=== PATIENT | male | born 1970 | race Caucasian/White ===

== ENCOUNTER 2018-03-25 14:15 | Emergency (ER) | payer OTHER ==
[~2018-03-25] VITALS: Ht 170.1 cm; Wt 77.1 kg
--- NOTE | ~2018-03-25 | EKG ---
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
[~2018-03-25 14:15] MED LIST: HYDROCODONE BIT1 T11 PO; VICODIN 500 MG-1 TAB PO
[2018-03-25 14:27] LABS: BASO # 0.1 10*3/uL (0.0-0.1); BASO % 0.6 % (0.0-1.0); EOS # 0.1 10*3/uL (0.0-0.4); EOS % 0.6 % (1.0-4.0); HEMATOCRIT 47.2 % (42.0-52.0); HEMOGLOBIN 16.5 g/dl (14.0-18.0); LYMPH # 3.5 10*3/uL (1.3-4.4); LYMPH % 25.6 % (27.0-41.0); MEAN CELL VOLUME 89.9 fl (80.0-94.0); MEAN CORPUSCULAR HGB 31.4 pg (27.0-31.0); MEAN PLATELET VOLUME 9.1 fl (9.6-12.3); MONO # 0.8 10*3/uL (0.1-1.0); NEUT # 9.2 10*3/uL (2.3-7.9); NEUT % 66.8 % (47.0-73.0); PLATELET COUNT AUTOMATED 314 10*3/uL (130-400); RED BLOOD COUNT 5.25 10*6/uL (4.50-5.90); RED CELL DISTRI WIDTH 12.2 % (0-14.5); WHITE BLOOD COUNT 13.7 10*3/uL (4.8-10.8)
[2018-03-25 14:37] LABS: ACT PARTIAL THROMBO TIME 24.8 SECONDS (20.8-31.5)
[2018-03-25 14:45] LABS: ALBUMIN 4.2 gm/dl (3.1-4.5); ALKALINE PHOSPHATASE 61 U/L (45-117); BUN 16 mg/dl (7-24); CHLORIDE 105 mmol/L (98-107); CREATININE 1.25 mg/dL (0.70-1.30); POTASSIUM 3.7 mmol/L (3.5-5.1); SGOT/AST 17 IU/L (3-35); SGPT/ALT 19 U/L (12-78); SODIUM 138 mmol/L (136-145); TOTAL PROTEIN 7.7 gm/dL (6.4-8.2)
[2018-03-25 14:53] LABS: TROPONIN I < 0.015 ng/ml (<0.045)
[2018-03-25 16:03] VITALS: BP 136/78
== END 2018-03-25 15:56 | disposition left against medical advice (07) ==
LOC: ED 14:15
PROVIDERS: Emergency Medicine
DX: R07.9 Chest pain, unspecified (principal); Z88.0 Allergy status to penicillin; Z88.7 Allergy status to serum and vaccine

== ENCOUNTER 2019-01-13 15:01 | Emergency (ER) | payer SELFPAY ==
[~2019-01-13] VITALS: Ht 170.1 cm; Wt 77.1 kg
[2019-01-13 15:02] VITALS: BP 150/98
[2019-01-13] MEDS ORDERED: CIPRO500 MG PO (15:25)
== END 2019-01-13 16:51 | disposition home or self-care (01) ==
LOC: ED 15:01
DX: S91.332A Puncture wound without foreign body, left foot, initial encounter (principal); Z88.0 Allergy status to penicillin; Z88.7 Allergy status to serum and vaccine; W45.0XXA Nail entering through skin, initial encounter; Y93.89 Activity, other specified; Y92.89 Other specified places as the place of occurrence of the external cause; Y99.8 Other external cause status

== ENCOUNTER 2020-01-14 15:19 | Emergency (ER) | payer SELFPAY ==
[~2020-01-14] VITALS: Ht 162.5 cm; Wt 77.1 kg
[~2020-01-14 15:19] MED LIST changes: +CIPRO500 MG PO
[2020-01-14 15:35] VITALS: BP 130/81
[2020-01-14] MEDS ORDERED: CLINDAMYCIN HC300 MG PO (16:45)
[2020-01-14] MEDS ORDERED: NAPROSYN500 MG PO (16:47)
== END 2020-01-14 16:49 | disposition home or self-care (01) ==
LOC: ED 15:19
DX: L02.01 Cutaneous abscess of face (principal); Z98.890 Other specified postprocedural states; Z88.0 Allergy status to penicillin; Z88.7 Allergy status to serum and vaccine

== ENCOUNTER → 2021-03-18 | Outpatient (CLI) | payer OTHER ==
[~2021-03-18] MED LIST changes: +CLINDAMYCIN HC300 MG PO; +NAPROSYN500 MG PO
== END | disposition home or self-care (01) ==
LOC: RAD 13:06
PROVIDERS: ATTEND Family Medicine
DX: M99.01 Segmental and somatic dysfunction of cervical region (principal); Z72.0 Tobacco use

== ENCOUNTER 2022-02-02 09:15 | Emergency (ER) | payer OTHER ==
[~2022-02-02] VITALS: Ht 170.1 cm; Wt 81.6 kg
[2022-02-02 09:28] VITALS: BP 143/93
== END 2022-02-02 11:45 | disposition left against medical advice (07) ==
LOC: ED 09:15
DX: T78.49XA Other allergy, initial encounter (principal); Z91.030 Bee allergy status; Z88.0 Allergy status to penicillin; Z88.7 Allergy status to serum and vaccine; F17.200 Nicotine dependence, unspecified, uncomplicated; X58.XXXA Exposure to other specified factors, initial encounter

== ENCOUNTER 2022-11-10 11:06 | Emergency (ER) | payer OTHER ==
[~2022-11-10] VITALS: Ht 170.1 cm; Wt 81.6 kg
[2022-11-10 11:45] LABS: BASO # 0.1 10*3/uL (0.0-0.1); EOS # 0.2 10*3/uL (0.0-0.4); EOS % 2.3 % (1.0-4.0); HEMATOCRIT 47.5 % (42.0-52.0); LYMPH # 2.1 10*3/uL (1.3-4.4); LYMPH % 29.4 % (27.0-41.0); MEAN CORPUSCULAR HGB 31.8 pg (27.0-31.0); MEAN CORPUSCULAR HGB CONC 34.9 g/dl (33.0-37.0); MEAN PLATELET VOLUME 8.9 fl (9.6-12.3); MONO # 0.7 10*3/uL (0.1-1.0); MONO % 9.4 % (3.0-9.0); NEUT # 4.2 10*3/uL (2.3-7.9); NEUT % 57.6 % (47.0-73.0); PLATELET COUNT AUTOMATED 313 10*3/uL (130-400); RED BLOOD COUNT 5.22 10*6/uL (4.50-5.90); RED CELL DISTRI WIDTH 12.1 % (0-14.5); WHITE BLOOD COUNT 7.2 10*3/uL (4.8-10.8)
[2022-11-10 11:58] LABS: ALKALINE PHOSPHATASE 66 U/L (46-116); BUN 8 mg/dl (9-23); CHLORIDE 106 mmol/L (98-107); POTASSIUM 4.2 mmol/L (3.4-5.1); SGPT/ALT 19 U/L (10-49); TOTAL PROTEIN 7.1 gm/dL (6.0-8.0)
[2022-11-10 12:23] VITALS: BP 131/74
[2022-11-10] MEDS ORDERED: PREDNISONE50 MG PO (12:44)
[2022-11-10] MEDS ORDERED: VIBRAMYCIN100 MG PO (12:44)
== END 2022-11-10 11:37 | disposition home or self-care (01) ==
LOC: ED 11:06
PROVIDERS: Nurse Practitioner Family
DX: R21 Rash and other nonspecific skin eruption (principal); R59.0 Localized enlarged lymph nodes; F17.200 Nicotine dependence, unspecified, uncomplicated; Z91.030 Bee allergy status; Z88.0 Allergy status to penicillin; Z88.7 Allergy status to serum and vaccine

== ENCOUNTER → 2023-06-25 | Outpatient (CLI) | payer MEDICAID ==
[~2023-06-25] MED LIST changes: +PREDNISONE50 MG PO; +VIBRAMYCIN100 MG PO
== END | disposition home or self-care (01) ==
LOC: RAD 16:44
PROVIDERS: ATTEND Internal Medicine
DX: U07.1 COVID-19 (principal)

== ENCOUNTER 2023-12-02 22:49 | Emergency (ER) | payer MEDICAID ==
[~2023-12-02] VITALS: Ht 170.2 cm; Wt 81.6 kg
[2023-12-02 22:55] VITALS: BP 126/74
[2023-12-02] MEDS ORDERED: Tetracaine Hydrochloride 0.5% 4 ML BOT OPH ONE (23:00)
[2023-12-02] MEDS ORDERED: Dexamethasone/Tobramycin OPHTHALMIC 2.5 ML BOTTLE OPH ONE (23:05)
[2023-12-02] MEDS ORDERED: FLUORESCEIN SODIUM 1 MG STRIP OPH ONE (23:05)
== END 2023-12-02 23:43 | disposition home or self-care (01) ==
LOC: ED 22:49
DX: S05.02XA Injury of conjunctiva and corneal abrasion without foreign body, left eye, initial encounter (principal); F31.9 Bipolar disorder, unspecified; Z91.030 Bee allergy status; Z88.0 Allergy status to penicillin; Z88.7 Allergy status to serum and vaccine; Z98.890 Other specified postprocedural states; X58.XXXA Exposure to other specified factors, initial encounter; Y93.89 Activity, other specified; Y92.009 Unspecified place in unspecified non-institutional (private) residence as the place of occurrence of the external cause; Y99.8 Other external cause status

== ENCOUNTER 2024-01-14 21:19 | Emergency (ER) | payer MEDICAID ==
[~2024-01-14] VITALS: Ht 170.1 cm; Wt 77.1 kg
[2024-01-14 21:31] VITALS: BP 134/84
[2024-01-14] MEDS ORDERED: Ketorolac Tromethamine 60 MG/2 ML VIAL IM ONE (23:10)
[2024-01-15] MEDS ORDERED: NAPROSYN500 MG PO (00:22)
== END 2024-01-15 00:26 | disposition home or self-care (01) ==
LOC: ED 21:19
DX: M79.622 Pain in left upper arm (principal); Z91.030 Bee allergy status; Z88.0 Allergy status to penicillin; Z88.7 Allergy status to serum and vaccine; Z98.890 Other specified postprocedural states

== ENCOUNTER 2024-01-21 14:24 | Inpatient (IN) | payer MEDICAID ==
[~2024-01-21] VITALS: Ht 170.1 cm; Wt 82.6 kg
[2024-01-21 14:29] VITALS: BP 157/79
[2024-01-21 15:21] LABS: BASO # 0.1 10*3/uL (0.0-0.1); BASO % 1.2 % (0.0-1.0); EOS # 0.2 10*3/uL (0.0-0.4); EOS % 2.5 % (1.0-4.0); HEMATOCRIT 34.6 % (42.0-52.0); LYMPH # 2.4 10*3/uL (1.3-4.4); LYMPH % 35.7 % (27.0-41.0); MEAN CELL VOLUME 92.8 fl (80.0-94.0); MEAN CORPUSCULAR HGB 32.2 pg (27.0-31.0); MEAN CORPUSCULAR HGB CONC 34.7 g/dl (33.0-37.0); MEAN PLATELET VOLUME 9.2 fl (9.6-12.3); MONO # 0.6 10*3/uL (0.1-1.0); MONO % 8.5 % (3.0-9.0); NEUT # 3.5 10*3/uL (2.3-7.9); NEUT % 51.8 % (47.0-73.0); PLATELET COUNT AUTOMATED 306 10*3/uL (130-400); RED BLOOD COUNT 3.73 10*6/uL (4.50-5.90); WHITE BLOOD COUNT 6.8 10*3/uL (4.8-10.8)
[2024-01-21 15:32] LABS: ACT PARTIAL THROMBO TIME 26.6 SECONDS (20.0-32.1)
[2024-01-21 15:38] LABS: BILIRUBIN Negative (Negative); BLOOD Negative (Negative); CLARITY Clear (Clear); COLOR Yellow (Yellow); GLUCOSE Negative (Negative); KETONE Negative (Negative); LEUKO ESTERASE Negative (Negative); NITRITE Negative (Negative); PH 5.5 (4.5-8.0)
[2024-01-21] MEDS ORDERED: Pantoprazole Sodium 40 MG VIAL IV ONE (15:40)
[2024-01-21 15:45] LABS: BACTERIA 1+
[2024-01-21 15:49] LABS: ALKALINE PHOSPHATASE 50 U/L (46-116); BUN 13 mg/dl (9-23); CHLORIDE 110 mmol/L (98-107); LIPASE 39 U/L (12-53); POTASSIUM 3.8 mmol/L (3.4-5.1); SGPT/ALT 17 U/L (5-49); TOTAL PROTEIN 6.1 gm/dL (6.0-8.0)
[2024-01-21 15:50] LABS: ETHYL ALCOHOL < 3.0 mg/dl (<3)
[2024-01-21] MEDS ORDERED: IOHEXOL 300 MG/ML 100 ML VIAL IV ONE (16:40)
[2024-01-21] MEDS ORDERED: Nicotine 21 MG PATCH T SCH (18:35)
[2024-01-22] VITALS (7 sets, daily range): BP systolic 118–148; BP diastolic 62–92
[2024-01-22] MEDS ORDERED: SUCRALFATE 1 GM TAB PO SCH (07:30)
[2024-01-22 11:37] LABS: BASO # 0.1 10*3/uL (0.0-0.1); BASO % 0.9 % (0.0-1.0); EOS # 0.2 10*3/uL (0.0-0.4); EOS % 2.5 % (1.0-4.0); HEMATOCRIT 36.7 % (42.0-52.0); LYMPH # 2.9 10*3/uL (1.3-4.4); LYMPH % 37.9 % (27.0-41.0); MEAN CELL VOLUME 93.4 fl (80.0-94.0); MEAN CORPUSCULAR HGB 32.3 pg (27.0-31.0); MEAN CORPUSCULAR HGB CONC 34.6 g/dl (33.0-37.0); MEAN PLATELET VOLUME 9.2 fl (9.6-12.3); MONO # 0.7 10*3/uL (0.1-1.0); NEUT # 3.7 10*3/uL (2.3-7.9); NEUT % 49.3 % (47.0-73.0); PLATELET COUNT AUTOMATED 319 10*3/uL (130-400); RED BLOOD COUNT 3.93 10*6/uL (4.50-5.90); WHITE BLOOD COUNT 7.6 10*3/uL (4.8-10.8)
[2024-01-22] MEDS ORDERED: Lactated Ringer's Solution 1,000 ML IV ONE ×2 (13:00→13:10)
[2024-01-22] MEDS ORDERED: PROPOFOL 200 MG/20 ML VIAL IV ONE (16:20)
[2024-01-22] MEDS ORDERED: Midazolam Hydrochloride 2 MG/2 ML VIAL IV ONE (16:20)
[2024-01-22] MEDS ORDERED: Lidocaine Hydrochloride 2% 10 ML AMP IM ONE (16:20)
[2024-01-22] MEDS ORDERED: PROTONIX40 MG PO (17:07)
[2024-01-22] MEDS ORDERED: CARAFATE1 GM PO (17:07)
[2024-01-22] MEDS ORDERED: Pantoprazole Sodium 20 MG TAB PO SCH (18:00)
== END 2024-01-22 17:40 | disposition home or self-care (01) | DRG 241 ==
LOC: ED 14:24 → EDHOLD 16:34
PROVIDERS: Emergency Medicine; Nurse Practitioner; ADMIT Internal Medicine; ATTEND Internal Medicine
PROC: 0DB78ZX Excision of Stomach, Pylorus, Via Natural or Artificial Opening Endoscopic, Diagnostic (ICD-10-PCS; principal; 2024-01-22)
DX: K29.71 Gastritis, unspecified, with bleeding (principal); K26.4 Chronic or unspecified duodenal ulcer with hemorrhage; D64.9 Anemia, unspecified; K44.9 Diaphragmatic hernia without obstruction or gangrene; Z88.0 Allergy status to penicillin; Z88.7 Allergy status to serum and vaccine; Z88.8 Allergy status to other drugs, medicaments and biological substances; Z91.09 Other allergy status, other than to drugs and biological substances; Z87.891 Personal history of nicotine dependence; Z80.8 Family history of malignant neoplasm of other organs or systems